=== PATIENT | female | born 1985 | race Caucasian/White ===

== ENCOUNTER 2019-01-07 17:50 | Emergency (ER) | payer OTHER ==
[2019-01-07 18:39] VITALS: BP 108/66
--- NOTE | 2019-01-07 18:52 | ED ---
Throat Pain/Nasal Congestion - HPI Summary HPI Summary: cold like symptoms, no fever or chills, but did not take temperature at home. - History of Current Complaint Chief Complaint: UCRespiratory Time Seen by Provider: 01/07/19 18:33 Hx Obtained From: Patient, Family/Administrative Resident Onset/Duration: Gradual Onset, Lasting Days Severity: Moderate - Allergies/Home Medications Allergies/Adverse Reactions: Allergies Allergy/AdvReac Type Severity Reaction Status Date / Time Penicillins Allergy Severe Hives Verified 01/07/19 18:31 acetaminophen [From Percocet] Allergy Hallucinati Verified 01/07/19 18:31 ons cephalexin [From Keflex] Allergy Hallucinati Verified 01/07/19 18:31 ons oxycodone [From Percocet] Allergy Hallucinati Verified 01/07/19 18:31 ons prochlorperazine Allergy Hallucinati Verified 01/07/19 18:31 [From Compazine] ons ANY 'CILLINS Allergy Severe Hives Uncoded 01/07/19 18:31 Home Medications: Home Medications Bcp 1 tab DAILY 01/07/19 [History Confirmed 01/07/19] Cetirizine* [ZyrTEC 10 MG TAB*] 1 tab DAILY 01/07/19 [History Confirmed 01/07/19 ] Citalopram TAB* [Celexa TAB*] 1 tab DAILY 01/07/19 [History Confirmed 01/07/19] Ferrous Sulfate TAB* 1 tab TID 01/07/19 [History Confirmed 01/07/19] Glimepiride 1 tab DAILY 01/07/19 [History Confirmed 01/07/19] Omeprazole 1 tab DAILY 01/07/19 [History Confirmed 01/07/19] traMADol TAB* [Ultram*] 1 tab BEDTIME 01/07/19 [History Confirmed 01/07/19] PMH/Surg Hx/FS Hx/Imm Hx Previously Healthy: No - diabetes Endocrine/Hematology History: Reports: Hx Diabetes - type 2 Infectious Disease History: Yes Infectious Disease History: Reports: Hx Shingles Denies: Traveled Outside the [place] in Last 30 Days - Social History Alcohol Use: Occasionally Substance Use Type: Reports: None Smoking Status (MU): Never Smoked Tobacco Review of Systems Constitutional: Negative Eyes: Negative ENT: Negative Cardiovascular: Negative Positive: Cough Gastrointestinal: Negative Genitourinary: Negative Musculoskeletal: Negative All Other Systems Reviewed And Are Negative: Yes Physical Exam Triage Information Reviewed: Yes Vital Signs On Initial Exam: Initial Vitals Temp Pulse Resp BP Pulse Ox 36.4 C 89 20 108/66 100 01/07/19 18:36 01/07/19 18:36 01/07/19 18:36 01/07/19 18:36 01/07/19 18:36 Vital Signs Reviewed: Yes Appearance: Positive: Well-Appearing Skin: Positive: Warm, Dry Head/Face: Positive: Normal Head/Face Inspection Eyes: Positive: Normal Neck: Positive: Supple Respiratory/Lung Sounds: Positive: Clear to Auscultation Cardiovascular: Positive: Normal Abdomen Description: Positive: Nontender Bowel Sounds: Positive: Present Musculoskeletal: Positive: Normal Diagnostics - Vital Signs Vital Signs Temp Pulse Resp BP Pulse Ox 01/07/19 18:36 36.4 C 89 20 108/66 100 - Laboratory Lab Statement: Any lab studies that have been ordered have been reviewed, and results considered in the medical decision making process. EENT Course/Dx - Diagnoses Provider Diagnoses: Viral URI Discharge - Sign-Out/Discharge Documenting (check all that apply): Patient Departure All imaging exams completed and their final reports reviewed: No Studies - Discharge Plan Condition: Fair Disposition: HOME Patient Education Materials: Viral Syndrome (ED) Referrals: Claudette Collazo MD [Primary Care Provider] - - Billing Disposition and Condition Condition: FAIR Disposition: Home
[2019-01-07 19:11] LABS: Influenza A Molecular NEGATIVE (Negative); Influenza B Molecular NEGATIVE (Negative)
== END 2019-01-07 19:30 | disposition home or self-care (01) ==
LOC: UCCORT 17:50
DX: J06.9 Acute upper respiratory infection, unspecified (principal); E11.9 Type 2 diabetes mellitus without complications; Z88.0 Allergy status to penicillin; Z88.8 Allergy status to other drugs, medicaments and biological substances; Z88.5 Allergy status to narcotic agent; Z79.84 Long term (current) use of oral hypoglycemic drugs
CPT/HCPCS: 99211; G0463